=== PATIENT | female | born 1970 | race Caucasian/White ===

== ENCOUNTER 2017-01-06 08:51 | Emergency (ER) | payer MEDICAID, OTHER ==
[~2017-01-06] VITALS: Ht 157.5 cm; Wt 67.5 kg
[2017-01-06 08:52] VITALS: Ht 157.5 cm; Wt 67.5 kg
[2017-01-06] MEDS ORDERED: KETOROLAC 30 MG INJ IM STA (09:48)
--- NOTE | 2017-01-06 09:58 | ERD ---
ER Documentation Chief Complaint Date/Time DATE: 01/06/17 TIME: 09:54 Chief Complaint neck and back pain started several months ago, got worse today HPI This is a 46-year-old female who presents to the emergency department today complaining of neck pain, back pain and right arm pain. Patient states she has a history of this pain since 2014 from a work-related injury. States that she has been taking Tylenol at home. States she saw her doctor in November but does not have a another follow-up plans. States she has had 2 injections in her neck in the past proximally 1 year ago. Denies any fevers or chills, loss of bowel or bladder control. States her pain is similar to as it always is however it has increased in the past couple days ROS All systems reviewed and are negative except as per history of present illness. Medications Home Meds Active Scripts Tramadol HCl (Tramadol HCl) 50 Mg Tablet, 50 MG PO Q4 Y for PAIN, #20 TAB Prov:MINE BERG PA-C 01/06/17 Naproxen* (Naprosyn*) 500 Mg Tablet, 500 MG PO BID Y for PAIN AND/OR INFLAMMATION, #30 TAB Prov:MINE BERG PA-C 01/06/17 Allergies Allergies: Coded Allergies: No Known Allergy (Unverified , 01/06/17) PMhx/Soc Medical and Surgical Hx: pt denies Medical Hx, pt denies Surgical Hx History of Surgery: No Anesthesia Reaction: No Hx Neurological Disorder: No Hx Respiratory Disorders: No Hx Cardiac Disorders: No Hx Psychiatric Problems: No Hx Miscellaneous Medical Probl: No Hx Alcohol Use: No Hx Substance Use: No Hx Tobacco Use: No Physical Exam Vitals Vital Signs Date Time Temp Pulse Resp B/P Pulse Ox O2 Delivery O2 Flow Rate FiO2 01/06/17 08:52 98.3 77 19 135/79 99 Physical Exam Const: No acute distress Head: Atraumatic Eyes: Normal Conjunctiva ENT: Normal External Ears, Nose and Mouth. Neck: Full range of motion..~ No meningismus. Bilateral paraspinal tenderness. No midline tenderness. Resp: Clear to auscultation bilaterally Cardio: Regular rate and rhythm, no murmurs Abd: Soft, non tender, non distended. Normal bowel sounds Skin: No petechiae or rashes Back: No midline tenderness. Bilateral paraspinal tenderness. Decreased range of motion with flexion secondary to pain Ext: No cyanosis, or edema. Right arm full active range of motion with pain. Pulses 2+. Distal neurovascularly intact. Neur: Awake and alert Psych: Normal Mood and Affect Results 24 hrs Laboratory Tests Test 01/06/17 10:04 Bedside Urine pH (LAB) 7.0 Bedside Urine Protein (LAB) Negative Bedside Urine Glucose (UA) Negative Bedside Urine Ketones (LAB) Negative Bedside Urine Blood Trace-intact Bedside Urine Nitrite (LAB) Negative Bedside Urine Leukocyte Esterase (L Negative Current Medications Medications (Trade) Dose Ordered Sig/Aleida Route PRN Reason Start Time Stop Time Status Last Admin Dose Admin Ketorolac Tromethamine (Toradol) 30 mg ONCE STAT IM 01/06/17 09:48 01/06/17 09:50 DC Procedures/MDM This is a 46-year-old female who presents to the emergency department today complaining of neck pain, right arm pain and back pain. Patient did bring all of her paperwork with her from her workers comp injury from 2014. 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 She is also been diagnosed with median nerve neuritis as well as biceps tendinitis and low back pain with sciatica. It appears patient has taken duloxetine in the past. She has taken 2 Tylenol at home with no improvement in pain. Patient appears to be having acute on chronic pain. There has been no new trauma and her pain is similar to how it always is however she is she has had an increase in the past couple of days. Did not feel the patient requires further laboratory workup or imaging at this time as patient has had a complete workup with x-rays and MRIs in the past. Patient will be given a Toradol injection here in the emergency department. I will give her a very short course of tramadol for home as she does not appear to be taking any narcotics. In review of a cures report patient has not had any narcotics since July or August 2016. I will also give the patient a short course of Naprosyn. Patient is afebrile and otherwise well-appearing. There is been no new trauma. She has no loss of bowel or bladder control. Low suspicion for acute fracture dislocation, cauda equina or abscess. I have explained to the patient that she needs to try to get a follow-up for her Worker's Comp. I have also given her a list of Dr. Villela, painter and body mechanic apprentice At this time the patient is stable for discharge and outpatient management. Patient should follow up with their PCP in the next 1-2 days. They may return to the emergency department sooner for any persistent or worsening of symptoms. Patient understood and agreed with the plan. Departure Diagnosis: Primary Impression: Pain Condition: Fair MINE BERG PA-C Jan 06, 2017 09:58
[2017-01-06] MEDS ORDERED: NAPR-260 PO (09:59)
[2017-01-06] MEDS ORDERED: TRAM50TA2 PO (10:00)
[2017-01-06 10:04] LABS: URINE BLOOD (Dip) POC Trace-intact (NEGATIVE)
[2017-01-06 10:50] VITALS: BP 127/67; PULSE 73; RESP 19; TEMP 98.4
== END 2017-01-06 10:51 | disposition home or self-care (01) ==
LOC: FTE 08:51
DX: M54.2 Cervicalgia (principal); M54.9 Dorsalgia, unspecified
CPT/HCPCS: 81003; 96372; 99284; J1885

== ENCOUNTER 2017-01-10 10:20 | Emergency (ER) | payer MEDICAID, OTHER ==
[~2017-01-10] VITALS: Wt 67.5 kg
[~2017-01-10 10:20] MED LIST: NAPR-260 PO; TRAM50TA2 PO
[2017-01-10] MEDS ORDERED: KETOROLAC 15 MG INJ IM STA (10:48)
--- NOTE | 2017-01-10 11:04 | ERD ---
ER Documentation Chief Complaint Date/Time DATE: 01/10/17 TIME: 10:59 Chief Complaint neck pain rad to karan [facility] Patient is a 46-year-old female who presents to the ED complaining of neck pain , right shoulder pain and right arm pain. She states that she has had this pain in the past since 2015 from a work-related injury. She states that she works in the [employer] department. She states that she has been taking Tylenol for her pain and tramadol which is helped minimally. States that she has had injections in her neck, about 1 year ago which helped with her symptoms. She states that she has not seen a pain specialist or followed up with her Worker's Comp. 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 She states that her pain is similar to what she has experienced in the past denies any new onset pain. Patient was here on 01/06/17 with similar complaints. She denies any change in symptoms since her last visit. ROS All systems reviewed and are negative except as per history of present illness. Medications Home Meds Active Scripts Naproxen* (Naprosyn*) 500 Mg Tablet, 500 MG PO BID Y for PAIN AND/OR INFLAMMATION, #30 TAB Prov:JAGRUTI EDGAR PA-C 01/10/17 Tramadol HCl (Tramadol HCl) 50 Mg Tablet, 50 MG PO Q4 Y for PAIN, #20 TAB Prov:MINE BERG PA-C 01/06/17 Naproxen* (Naprosyn*) 500 Mg Tablet, 500 MG PO BID Y for PAIN AND/OR INFLAMMATION, #30 TAB Prov:MINE BERG PA-C 01/06/17 Allergies Allergies: Coded Allergies: No Known Allergy (Unverified , 01/06/17) PMhx/Soc History of Surgery: No Anesthesia Reaction: No Hx Neurological Disorder: No Hx Respiratory Disorders: No Hx Cardiac Disorders: No Hx Psychiatric Problems: No Hx Miscellaneous Medical Probl: No Hx Alcohol Use: No Hx Substance Use: No Hx Tobacco Use: No Smoking Status: Never smoker Physical Exam Vitals Vital Signs Date Time Temp Pulse Resp B/P Pulse Ox O2 Delivery O2 Flow Rate FiO2 01/10/17 10:22 89.5 91 20 144/73 100 Physical Exam GENERAL: Well-developed, well-nourished female. Appears in no acute distress. HEAD: Normocephalic, atraumatic. EYES: Pupils are equally reactive bilaterally. EOMs grossly intact. No conjunctival erythema. ENT: Moist mucous membranes. No uvula deviation. No kissing tonsils. No exudates. NECK: Supple. No lymphadenopathy or thyromegaly. No meningismus. negative kernig. negative brudinski. No spinal or paraspinal tenderness. No step-offs or deformities. Tenderness in the right shoulder with pain on the radial aspect of her hand and arm. LUNG: Clear to auscultation bilaterally. No rhonchi, wheezing, rales or coarse breath sounds. HEART: Regular rate and rhythm. No murmurs, rubs or gallops. Extremities: Equal pulses bilaterally. No peripheral clubbing, cyanosis or edema. No unilateral leg swelling. Pain with flexion of hand in abduction. Pulses intact bilaterally. NEUROLOGIC: Alert and oriented. Moving all four extremities. 4/5 strength in all extremities. Normal speech. Steady gait. SKIN: Normal color. Warm and dry. No rashes or lesions. Capillary refill < 2 seconds Results 24 hrs Current Medications Medications (Trade) Dose Ordered Sig/Aleida Route PRN Reason Start Time Stop Time Status Last Admin Dose Admin Ketorolac Tromethamine (Toradol) 15 mg ONCE STAT IM 01/10/17 10:48 01/10/17 10:49 DC 01/10/17 11:00 Procedures/MDM ER COURSE: I kept the patient and/or family informed of laboratory and diagnostic imaging results throughout the emergency room course. MEDICAL DECISION MAKING: This is a 46-year-old female who presents with chronic back pain, neck pain, shoulder pain and arm pain.. Vital signs were reviewed. Patient is afebrile. Patient is not hypoxic. Patient is not toxic or ill-appearing. Patient had her workers comp injury 2015 report. From her previous note she was diagnosed with a median nerve neuritis as well as biceps tendinitis and low back pain with sciatica. Patient has no new onset trauma and her pain is similar to what she has in the past. I do not feel like any further workup or imaging studies is necessary today. 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 Patient has had x-rays and MRIs in the past. Low suspicion for cauda equine syndrome, spinal epidural hematoma, spinal epidural abscess, osteomyelitis, fracture, aortic dissection, AAA, pyelonephritis, nephrolithiasis, septic stone, obstructed stone. Low suspicion for dislocation, fracture, septic joint, compartment syndrome, osteomyelitis, cellulitis, avascular necrosis, neurological injury, vascular injury, tendon laceration. Low suspicion for dislocation, fracture, epidural abscess, herniation, osteomyelitis, meningitis, neurological deficit. Toradol was given with no adverse reaction. DISCHARGE: At this time, patient is stable for discharge and outpatient management with no new complaints during the ER course. Patient was sent home with [facility] for pain and name of Dr. Villela to follow up. Patient will be discharged home with instructions to recheck for new or worsening symptoms such as fever, nausea, weakness, LOC and to follow up with primary care in the next 1-2 days. Patient was advised to return to the ER for any new or worsening symptoms. Plan was discussed and patient and/or family understands and agrees. Home instructions were given. Departure Diagnosis: Primary Impression: Neck pain Condition: Stable JAGRUTI EDGAR PA-C Jan 10, 2017 11:04
[2017-01-10] MEDS ORDERED: NAPR-260 PO (11:05)
== END 2017-01-10 11:22 | disposition home or self-care (01) ==
LOC: FTE 10:20
DX: M54.2 Cervicalgia (principal)
CPT/HCPCS: 96372; J1885